=== PATIENT | female | born 1985 | race Caucasian/White ===

== ENCOUNTER 2021-09-18 08:36 | Day surgery (SDC) | payer OTHER ==
[~2021-09-18] VITALS: Ht 152.4 cm; Wt 61.0 kg
[2021-09-18 08:53] VITALS: BP 117/73; PULSE 75; TEMP 97.4
[2021-09-18] MEDS ORDERED: RT ADVAIR 228 DISKUS IH (08:57)
[2021-09-18] MEDS ORDERED: NURTEC ODT75 MG PO (08:58)
[2021-09-18] MEDS ORDERED: ZANAFLEX CAPSULE2 MG PO (08:58)
[2021-09-18] MEDS ORDERED: D3-5050000 IU PO (08:59)
[2021-09-18 10:30] VITALS: BP 117/69; PULSE 85; TEMP 97.2
--- NOTE | 2021-09-18 10:30 | NUR ---
The patient arrived back to [facility] from the endoscopy suite at this time. The patient ambulated from the cart to the recliner in her room with the stand by assistance of two nurses and appeared to tolerate the activity well. The patient appears alert and oriented at this time. Post procedure vital signs were started at this time. The patient' agrees to try some orange juice.
[2021-09-18 10:45] VITALS: BP 124/86; PULSE 78
--- NOTE | 2021-09-18 10:45 | NUR ---
Dr. Mesa has been at the patient's bedside to discuss the findings of the procedures with the patient and her over the phone. She appears to be tolerating the juice well and denies wanting anything further to eat or drink.
--- NOTE | 2021-09-18 11:00 | NUR ---
Discharge instructions were reviewed with the patient at this time. She verbalized understanding and has no questions for the nurse at this time. The patient's IV to her right anecubital was removed and a pressure dressing was applied to the site. The nurse instructed the patient to get dressed and notify the staff when her is here.
[2021-09-18 11:03] VITALS: BP 122/73; PULSE 83
--- NOTE | 2021-09-18 11:10 | NUR ---
The patient was escorted out via wheelchair to a private vehicle by Agnes De Santiago. The patient's belongings and discharge paperwork were sent with her. The patient's is present to drive her home.
== END 2021-09-18 11:10 | disposition home or self-care (01) ==
LOC: SDCO 08:36
DX: D12.5 Benign neoplasm of sigmoid colon (principal); K63.5 Polyp of colon; K29.70 Gastritis, unspecified, without bleeding; K62.89 Other specified diseases of anus and rectum; K64.0 First degree hemorrhoids; R21 Rash and other nonspecific skin eruption
CPT/HCPCS: J2704; J3010; J7030

== ENCOUNTER → 2021-11-28 | Outpatient (CLI) | payer OTHER ==
[~2021-11-28] MED LIST: D3-5050000 IU PO; NURTEC ODT75 MG PO; RT ADVAIR 228 DISKUS IH; ZANAFLEX CAPSULE2 MG PO
== END ==
LOC: COL.RAD 10-29 07:30
DX: M50.223 Other cervical disc displacement at C6-C7 level (principal)